=== PATIENT | male | born 1965 | race Caucasian/White ===

== ENCOUNTER 2021-01-22 09:01 | Emergency (ER) | payer MEDICAID, SELFPAY ==
[~2021-01-22] VITALS: Ht 170.2 cm; Wt 83.0 kg
--- NOTE | 2021-01-22 09:01 | NUR ---
PT BROUGHT TO BED 2 VIA [facility]
[2021-01-22 09:11] VITALS: BP 128/57
--- NOTE | 2021-01-22 09:30 | NUR ---
55/M biba from with c/o syncope and weakness. Patient states he has been "falling lately." Per EMS called 911 stating patient had a syncopal episode and hit his head in the hallway. Patient denies fevers, chills, change in vision, chest pain, shortness breath, cough or urinary symptoms. Patient alert and oriented x4, answering questions appropriately.
--- NOTE | 2021-01-22 10:30 | NUR ---
JOSE LAFLEUR CALLED REQUESTING UPDATE [phone]
[2021-01-22 11:14] LABS: BASOPHILS % (AUTO) 0.2 % (0.0-2.0); EOSINOPHILS # (AUTO) 0.2 K/uL (0-0.4); EOSINOPHILS % (AUTO) 3.3 % (0.0-4.0); HEMATOCRIT 40.5 % (36-52); HEMOGLOBIN 13.8 g/dL (12.0-18.0); LYMPHOCYTES # (AUTO) 1.4 K/uL (2.0-11.5); LYMPHOCYTES % (AUTO) 28.4 % (20.5-51.1); MEAN CORPUSCULAR HEMOGLOBIN 32 pg (27-31); MEAN CORPUSCULAR HGB CONC 34 g/dL (33-37); MEAN CORPUSCULAR VOLUME 93.9 fL (80-94); MONOCYTES # (AUTO) 0.4 K/uL (0.8-1.0); NEUTROPHILS % (AUTO) 60.1 % (42.2-75.2); PLATELET COUNT (AUTO) 160 K/uL (140-450); RED BLOOD CELL COUNT(AUTO) 4.31 MIL/uL (4.20-6.10); WHITE BLOOD COUNT (AUTO) 5.1 K/uL (4.8-10.8)
--- NOTE | 2021-01-22 11:15 | NUR ---
Urine collected bedside and handed to laborer heading.
[2021-01-22 11:19] LABS: PROTHROMBIN TIME 10.3 secs (10.8-13.4)
[2021-01-22 11:23] LABS: ALBUMIN 3.7 g/dL (3.4-5.0); ANION GAP 11.4 (8-16); CARBON DIOXIDE 28.3 mmol/L (21-32); CREATININE 0.7 mg/dL (0.6-1.3); POTASSIUM 3.7 mmol/L (3.5-5.1); TOTAL BILIRUBIN 0.6 mg/dL (0.0-1.0)
[2021-01-22 12:24] LABS: APPEARANCE,URINE CLEAR (CLEAR); BILIRUBIN,URINE NEGATIVE (NEGATIVE); BLOOD, URINE TRACE-I (NEGATIVE); COLOR,URINE YELLOW (YELLOW); LEUKOCYTE ESTERASE ,URINE NEGATIVE (NEGATIVE); NITRITE, URINE NEGATIVE (NEGATIVE); UGLUCOSE 2+ (NEGATIVE)
[2021-01-22 12:31] LABS: RBC,URINE 0-5 /HPF (0-5); WBC,URINE 0-5 /HPF (0-5)
--- NOTE | 2021-01-22 12:31 | NUR ---
Per patient, okay to update family. Attempted to call no answer, no voicemail available to leave messge.
--- NOTE | 2021-01-22 12:42 | NUR ---
Patient resting with eyes closed, on bedside school bus monitor. All needs met at this time.
[2021-01-22] MEDS ORDERED: ASPIRIN 325 MG TAB PO ONE (13:20)
--- NOTE | 2021-01-22 14:00 | NUR ---
Patient resting with eyes closed, on bedside compliance monitor. All needs met at this time.
[2021-01-22] MEDS ORDERED: POTASSIUM CHLORIDE 40 MEQ, LIDOCAINE MPF 1% 25 MG in NACL 0.9% 250 ML IV PRN (14:20)
[2021-01-22] MEDS ORDERED: SODIUM PHOS / POTASSIUM PHOS 1 PKT PDR PO PRN (14:20)
[2021-01-22] MEDS ORDERED: ACETAMINOPHEN 325 MG TAB PO PRN (14:20)
[2021-01-22] MEDS ORDERED: HYDROcodone/APAP 5/325 MG 1 TAB TAB PO PRN (14:20)
[2021-01-22] MEDS ORDERED: MORPHINE SULFATE 2 MG/ML SYR IVP PRN (14:20)
[2021-01-22] MEDS ORDERED: ONDANSETRON 4 MG/2 ML VIAL IM/IVP PRN (14:20)
[2021-01-22] MEDS ORDERED: MAG SULF 2000 MG/WATER PREMIX 50 ML IV PRN (14:20)
[2021-01-22] MEDS ORDERED: NACL 0.9% 1,000 ML IV SCH (14:20)
[2021-01-22] MEDS ORDERED: DOCUSATE SODIUM 100 MG GELCAP PO PRN (14:20)
--- NOTE | 2021-01-22 14:45 | NUR ---
Patient attempting to get out of bed, removed monitor leads, sheets changed, patient positioned back in bed in a position of comfort, placed back on cardiac monitor technician. VSS.
[2021-01-22] MEDS ORDERED: chlordiazePOXIDE 25 MG CAP PO SCH (17:00)
--- NOTE | 2021-01-22 17:00 | NUR ---
Patient continuing to get up out of bed, pulled IV out, stating he wants to go home. Dr. Bose made aware.
[2021-01-22 17:15] VITALS: BP 147/75
--- NOTE | 2021-01-22 17:15 | NUR ---
Dr. Bose made aware patient wants to AMA.
--- NOTE | 2021-01-22 17:20 | NUR ---
Patient does not wish to proceed with medical care recommended by Dr. Bose. Patient given information related to possible complications, up to and including , which could occur as a result of leaving hospital at this time. Patient verbalizes understanding of risks involved leaving against medical advice. Patient has signed AMA form.
[2021-01-22 18:43] LABS: MAGNESIUM 1.9 mg/dL (1.8-2.4); PHOSPHORUS 2.6 mg/dL (2.5-4.9)
[2021-01-23] MEDS ORDERED: PANTOPRAZOLE 40 MG INJ VIAL IVP SCH (09:00)
[2021-01-23] MEDS ORDERED: FOLIC ACID 1 MG TAB PO SCH (09:00)
[2021-01-23] MEDS ORDERED: ASPIRIN 81 MG TAB.CHEW PO SCH (09:00)
[2021-01-23] MEDS ORDERED: MULTIVITAMIN 1 TAB PO SCH (09:00)
[2021-01-23] MEDS ORDERED: THIAMINE 100 MG TAB PO SCH (09:00)
[2021-01-23] MEDS ORDERED: ATORVASTATIN 20 MG TAB PO SCH (09:00)
--- NOTE | 2021-01-30 11:27 | NUR ---
LATE ENTRY--end time for Normal Saline 0.9% at 1720.
== END 2021-01-22 17:25 | disposition left against medical advice (07) ==
LOC: MED 09:01 → EDBD 09:01 → UNDOADMIN 14:19 → MTU 14:19 → UNDODISIN 17:25 → MED 17:25
DX: F10.129 Alcohol abuse with intoxication, unspecified (principal); Z20.822 Contact with and (suspected) exposure to COVID-19; E11.9 Type 2 diabetes mellitus without complications; I10 Essential (primary) hypertension; Y90.5 Blood alcohol level of 100-119 mg/100 ml; Z98.890 Other specified postprocedural states; Z86.73 Personal history of transient ischemic attack (TIA), and cerebral infarction without residual deficits
CPT/HCPCS: 36415; 70450; 71045; 72040; 80053; 81001; 83735; 83880; 84100; 84484; 85025; 85610; 85730; 87426; 93005; 96360; 96361; 99285; G0482; U0003; 81002; Q0092